=== PATIENT | male | born 1995 | race Two or more races ===

== ENCOUNTER 2020-10-30 00:17 | Emergency (ER) | payer SELFPAY ==
--- NOTE | 2020-10-30 07:54 | CT ---
PRELIMINARY REPORT/[facility]/EMERGENCY AFTER HOURS PROCEDURE: CT brain and cervical spine without contrast: Comparison: None Findings: No intracranial hemorrhage. No mass lesion. No midline shift or herniation. No definite evidence of acute ischemia or stroke. No hydrocephalus. No acute cranial fracture. No fracture or paravertebral soft tissue swelling in the cervical spine. No significant spinal canal narrowing. The bones, sinuses and soft tissues are otherwise unremarkable . Impression: No acute intracranial abnormality. No cranial or cervical fracture identified.. ELECTRONICALLY SIGNED BY: Kevin Lewis MD Oct 30, 2020 1:14:06 AM [employer]IA[employer] ENGINEER This report is intended for review by the ordering physician only, in accordance of law. If you recei ve this report in error, please call [facility] at [phone]. FINAL REPORT EMERGENT AFTER HOURS CT OF THE CERVICAL SPINE WITHOUT CONTRAST: HISTORY: Head trauma with neck pain. FINDINGS/IMPRESSION: I agree with the findings and impression given in the preliminary report per [facility] physici an. No evidence of acute osseous abnormality. POS: [facility]
--- NOTE | 2020-10-30 07:55 | CT ---
PRELIMINARY REPORT/[facility]/EMERGENCY AFTER HOURS PROCEDURE: CT brain and cervical spine without contrast: Comparison: None Findings: No intracranial hemorrhage. No mass lesion. No midline shift or herniation. No definite evidence of acute ischemia or stroke. No hydrocephalus. No acute cranial fracture. No fracture or paravertebral soft tissue swelling in the cervical spine. No significant spinal canal narrowing. The bones, sinuses and soft tissues are otherwise unremarkable . Impression: No acute intracranial abnormality. No cranial or cervical fracture identified.. ELECTRONICALLY SIGNED BY: Kevin Lewis MD Oct 30, 2020 1:14:06 AM [facility] This report is intended for review by the ordering physician only, in accordance of law. If you recei ve this report in error, please call [facility] at [phone]. FINAL REPORT EMERGENT AFTER HOURS CT OF THE BRAIN WITHOUT CONTRAST: HISTORY: Head trauma. FINDINGS/IMPRESSION: I agree with the findings and impression given in the preliminary report per [facility] physici an. No evidence of acute intracranial abnormality. POS: TRI
== END 2020-10-30 01:42 | disposition home or self-care (01) ==
LOC: ERS 00:17
DX: R56.9 Unspecified convulsions (principal); S16.1XXA Strain of muscle, fascia and tendon at neck level, initial encounter; X58.XXXA Exposure to other specified factors, initial encounter
CPT/HCPCS: 70450; 72125